=== PATIENT | male | born 1990 | race Caucasian/White ===

== ENCOUNTER 2018-01-04 00:48 | Emergency (ER) | payer BC, OTHER ==
--- NOTE | 2018-01-04 00:53 | PDOC ---
History of Present Illness - General Chief Complaint: Chest Pain Stated Complaint: CHEST PAIN/ARM TINGLING Time Seen by Provider: 01/04/18 00:53 History Source: Patient Exam Limitations: No Limitations - History of Present Illness Initial Comments: 01/04/18 01:06 27M no sig PMHx with cc of anterior chest "tightness" as well as bilateral UE "tingling". CP began 5d ago, cannot remember circumstances around onset of pain. Worse with movement. Tonight noted that it's been more difficult than prior to take a deep breath, but no true SOB. +slight cough tonight, non productive, no fever/chills. Recalls similar pain last year which was a result of heavy lifting/muscle strain. No N/V, no abd pain. No diaphoresis. No LE pain/ swelling/recent long travel/immobilization. No fam hx of CAD at young age, no familial hx of VTE. 01/04/18 01:09 Past History - Past Medical History Allergies/Adverse Reactions: Allergies Allergy/AdvReac Type Severity Reaction Status Date / Time No Known Allergies Allergy Unverified 01/04/18 01:10 Home Medications: Ambulatory Orders NK [No Known Home Medication] 01/04/18 Review of Systems - Review of Systems Constitutional: No: Diaphoresis, Fever, Night Sweats, Weakness Respiratory: Yes: Cough. No: Productive cough, Hemoptysis Cardiac (ROS): Yes: Chest Tightness. No: Palpitations, Syncope ABD/GI: No: Abdominal Distended, Diarrhea, Difficulty Swallowing : No: Dysuria Musculoskeletal: No: Back Pain Neurological: No: Headache *Physical Exam - Physical Exam General Appearance: Yes: Nourished, Appropriately Dressed, Apparent Distress HEENT: positive: Normal ENT Inspection, Normal Voice, Symmetrical Neck: negative: Tender Respiratory/Chest: positive: Lungs Clear, Normal Breath Sounds. negative: Respiratory Distress, Accessory Muscle Use, Labored Respiration, Rapid RR Cardiovascular: positive: Regular Rhythm, Regular Rate, S1, S2. negative: Edema , JVD Musculoskeletal: negative: CVA Tenderness Extremity: positive: Normal Inspection. negative: Swelling, Calf Tenderness, Erythema Neurologic: positive: glass calibrator II-XII NML intact, Fully Oriented, Alert, Normal Mood/ Affect Heart Score/ECG Review - History History: Slightly suspicious - Electrocardiogram EKG: Normal - Age Age: </= 45 - Risk Factors Risk Factors Heart Score: Yes Hx Obesity Based on the list above the patient has:: 1-2 risk factors - Troponin Troponin: </= normal limit - Score Heart Score - Total: 1 ED Treatment Course - LABORATORY CBC & Chemistry Diagram: 01/04/18 01:30 01/04/18 01:30 Medical Decision Making - Medical Decision Making 01/04/18 01:13 27M with chest tightness x5 days, cough and bilat UE "tingling". Overall, most likely msk, HEART score 1 (obesity), PERC neg. Unlikely cardiac, unlikely PE. - labs, CXR, EKG, motrin - reassess 01/04/18 03:34 CXR, labs, EKG reviewed - no acute findings which are concerning. Will discharge pt home with instructions to take motrin q6hrs for pain, f/u with PMD. Return if sxs worsen. Most likely msk. *DC/Admit/Observation/Transfer Diagnosis at time of Disposition: Chest pain - Discharge Dispostion Disposition: HOME Condition at time of disposition: Good - Referrals - Patient Instructions Printed Discharge Instructions: DI for Chest Pain Additional Instructions: You were seen in the ER for chest pain. You had blood work, a chest x-ray and an EKG which did not show any major abnormalities which are concerning at this time. Please take motrin every 6 hours for pain and follow up with primary care. Return sooner if your symptoms worsen. - Post Discharge Activity
[2018-01-04 00:54] VITALS: BP 142/98; PULSE 75; TEMP 98; BMI 41.1
[2018-01-04] MEDS ORDERED: IBUPROFEN 400 MG TABLET (FP) PO PRN (01:05)
[2018-01-04] MEDS ORDERED: IBUPROFEN 400 MG TABLET (FP) PO ONE (02:17)
[2018-01-04 02:30] LABS: EOS % 3.6 % (0-4.5); HEMOGLOBIN 15.3 GM/dL (11.7-16.9); LYMPH % 35.9 % (8-40); MCH 28.6 pg (25.7-33.7); MEAN CELL VOLUME 84.3 fl (80-96); MEAN PLT VOLUME 9.1 fl (7.5-11.1); MONO % 9.7 % (3.8-10.2); NEUT % 49.8 % (42.8-82.8); PLATELET COUNT 272 K/MM3 (134-434); RBC 5.35 M/mm3 (4.00-5.60); RDW 13.4 % (11.9-15.9); WHITE BLOOD COUNT 10.8 K/mm3 (4.0-10.0)
[2018-01-04 03:09] LABS: ALBUMIN 3.9 g/dl (3.4-5.0); ANION GAP 8 (8-16); BLOOD UREA NITROGEN 19 mg/dL (7-18); CALCIUM 8.9 mg/dL (8.5-10.1); CHLORIDE 106 mmol/L (98-107); CO2 26 mmol/L (21-32); CREATININE 0.8 mg/dL (0.7-1.3); GLUCOSE,RANDOM 101 mg/dL (74-106); POTASSIUM 3.9 mmol/L (3.5-5.1); SGOT/AST 33 U/L (15-37); SGPT/ALT 81 U/L (12-78); SODIUM 140 mmol/L (136-145)
[2018-01-04 03:11] LABS: ALK PHOS 81 U/L (45-117); BILIRUBIN,TOTAL 0.4 mg/dL (0.2-1.0); TOT PROT 7.7 g/dl (6.4-8.2)
--- NOTE | 2018-01-04 10:59 | EKG ---
Test Reason : Blood Pressure : / mmHG Vent. Rate : 069 BPM Atrial Rate : 069 BPM P-R Int : 152 ms QRS Dur : 102 ms QT Int : 398 ms P-R-T Axes : 032 017 040 degrees QTc Int : 426 ms NORMAL SINUS RHYTHM CANNOT RULE OUT SEPTAL INFARCT , AGE UNDETERMINED (possibly due to lead placeement or chest shape?) Possible LVH ABNORMAL ECG NO PREVIOUS ECGS AVAILABLE Confirmed by MARISSA SCHROEDER, MARIN ([id number]) on 01/04/2018 10:58:52 AM Referred By: MD MACKEY Confirmed By:MARIN ANN MD
== END 2018-01-04 03:43 | disposition home or self-care (01) ==
LOC: FER 00:48
DX: R07.9 Chest pain, unspecified (principal)
CPT/HCPCS: 36415; 71046-TC-FY; 80048; 80053; 82550; 84484; 85025; 93005; 99284-25